=== PATIENT | female | born 1940 | race Two or more races ===

== ENCOUNTER 2018-09-10 16:40 | Emergency (ER) | payer OTHER ==
[~2018-09-10] VITALS: Ht 157.5 cm; Wt 71.2 kg
[2018-09-10] MEDS ORDERED: TIROSINT25 MCG (17:10)
[2018-09-10] MEDS ORDERED: GLEEVEC100 MG (17:11)
[2018-09-10] MEDS ORDERED: PRINIVIL5 MG (17:11)
== END 2018-09-10 21:17 | disposition home or self-care (01) ==
LOC: ER 16:40
DX: S82.851A Displaced trimalleolar fracture of right lower leg, initial encounter for closed fracture (principal); W01.198A Fall on same level from slipping, tripping and stumbling with subsequent striking against other object, initial encounter; Y93.89 Activity, other specified; Y92.89 Other specified places as the place of occurrence of the external cause; Y99.8 Other external cause status